=== PATIENT | male | born 1965 | race Caucasian/White ===

== ENCOUNTER 2019-12-01 10:11 | Emergency (ER) | payer SELFPAY ==
[~2019-12-01] VITALS: Ht 185.5 cm; Wt 68.9 kg
[2019-12-01 10:17] VITALS: BP 139/81
--- NOTE | 2019-12-01 10:33 | ED Chest Pain ---
General Chief Complaint: Chest Wall Stated Complaint: THINKS HE HAS BROKEN RIBS Nursing Triage Note: Patient states he slipped in his bathtub on Saturday evening and fell against the side of the tub, injuring his right rib cage. He states his pain has continued to worsen each day. Nursing Sepsis Screen: No Definite Risk Source: patient Exam Limitations: no limitations History of Present Illness Date Seen by Provider: Dec 01, 2019 Time Seen by Provider: 10:27 Initial Comments Patient presents with complaint of right-sided chest pain. States the pain began after slipping getting out of the bathtub 2 days ago. His right arm was on the edge of the tub and slipped. He denies hitting his chest but states that the movement causes pain in his right-sided chest. He is worried he may "dislocated a rib". Complains of pain with certain movements, raising his arm or taking a deep breath. Denies any recent illness, fever or chills, shortness of air at rest or exposure COVID-19. Allergies and Home Medications Allergies Coded Allergies: No Known Drug Allergies (Unverified , 12/01/19) Patient Home Medication List Home Medication List Reviewed: Yes Review of Systems Review of Systems Constitutional: No dizziness, No fever, No malaise, No weakness EENTM: No Symptoms Reported Respiratory: Denies Cough, Denies Orthopnea, Denies Shortness of Air, Denies SOA at Rest, Denies Stridor, Denies Wheezing Cardiovascular: Chest Pain; Denies Edema, Denies Irregular Heart Rate, Denies Lightheadedness, Denies Palpitations, Denies Syncope Gastrointestinal: Denies Abdominal Pain, Denies Nausea, Denies Vomiting Musculoskeletal: No back pain, No joint pain, No neck pain Skin: No change in color, No lesions, No lumps, No rash Past Dgfzgio-Xlesjm-Ovndrt Hx Past Med/Social Hx: Reviewed Nursing Past Med/Soc Hx Patient Social History Alcohol Use: Regular Use Number of Drinks Today: 0 Alcohol Beverage of Choice: Beer Recreational Drug Use: No Smoking Status: Current Everyday Smoker Type Used: Cigarettes 2nd Hand Smoke Exposure: No Recent Foreign Travel: No Contact w/Someone Who Travel: No Recent Infectious Disease Expo: No Recent Hopitalizations: No Physical Abuse: No Sexual Abuse: No Mistreated: No Fear: No Seasonal Allergies Seasonal Allergies: No Past Medical History Surgeries: No Respiratory: No Cardiac: Yes Hypertension Neurological: No Genitourinary: No Gastrointestinal: No Musculoskeletal: No Endocrine: No HEENT: No Cancer: No Psychosocial: Yes Anxiety Integumentary: No Physical Exam Vital Signs Vital Signs - First Documented 12/01/19 10:17 Temp 36.6 Pulse 70 Resp 16 B/P (MAP) 139/81 (100) Pulse Ox 97 O2 Delivery Room Air Capillary Refill : Less Than 3 Seconds Height, Weight, BMI Height: '" Weight: lbs. oz. kg; 20.00 BMI Method: General Appearance: No Apparent Distress, WD/WN Neck: Full Range of Motion, Non Tender, Supple Respiratory: Lungs Clear, Normal Breath Sounds, No Accessory Muscle Use, No Respiratory Distress, Other (tenderness ant/ lat R chest wall) Cardiovascular: Regular Rate, Rhythm, No Gallop, Normal Peripheral Pulses Gastrointestinal: Non Tender, Soft; No Distended, No Guarding; Tenderness Skin: Normal Color, Warm/Dry Progress/Results/Core Measures Results/Orders My Orders Orders - ARUNA CASANOVA DO Chest Pa/Lat (2 View) (12/01/19 10:24) Vital Signs/I&O 12/01/19 10:17 Temp 36.6 Pulse 70 Resp 16 B/P (MAP) 139/81 (100) Pulse Ox 97 O2 Delivery Room Air Blood Pressure Mean: 100 Diagnostic Imaging Comments FINDINGS: PA and lateral views. The lungs are well aerated and clear. Heart is not enlarged. No pneumothorax or pleural effusion. No evidence of rib fractures. IMPRESSION: Normal PA and lateral chest. Dictated on workstation # [id number] Dict: 12/01/19 1048 Trans: 12/01/19 1055 [id number] [id number] Interpreted by: MARBELLA RICHEY MD Electronically signed by: Departure Impression Primary Impression: Chest wall pain Disposition: HOME, SELF-CARE Condition: Stable Departure-Patient Inst. Decision time for Depature: 11:00 Patient Instructions: Blunt Chest Trauma (DC) Add. Discharge Instructions: See your Doctor in 2 weeks if not improving, sooner if worse. All discharge instructions reviewed with patient and/or family. Voiced understanding. Scripts Ibuprofen (Ibuprofen) 800 Mg Tablet 800 MG PO Q8H PRN for PAIN, #30 TAB 0 Refills Prov: ARUNA CASANOVA DO 12/01/19 Cyclobenzaprine HCl (Cyclobenzaprine HCl) 10 Mg Tablet 10 MG PO Q8H PRN for SPASMS, #15 TAB 0 Refills Prov: ARUNA CASANOVA DO 12/01/19 ARUNA CASANOVA DO Dec 01, 2019 10:33
--- NOTE | 2019-12-01 10:55 | Diagnostic Imaging Report ---
INDICATION: Right-sided rib pain. FINDINGS: PA and lateral views. The lungs are well aerated and clear. Heart is not enlarged. No pneumothorax or pleural effusion. No evidence of rib fractures. IMPRESSION: Normal PA and lateral chest. Dictated by: Dictated on workstation # [id number]
[2019-12-01] MEDS ORDERED: IBUP-1780 PO (11:00)
[2019-12-01] MEDS ORDERED: CYCL10TA9 PO (11:00)
== END 2019-12-01 11:09 | disposition home or self-care (01) ==
LOC: ER FS 10:14
DX: R07.89 Other chest pain (principal); W18.2XXA Fall in (into) shower or empty bathtub, initial encounter; I10 Essential (primary) hypertension; F41.9 Anxiety disorder, unspecified; F17.210 Nicotine dependence, cigarettes, uncomplicated
CPT/HCPCS: 71046